=== PATIENT | female | born 1975 | race African-American/Black ===

== ENCOUNTER 2019-10-30 17:20 | Emergency (ER) | payer OTHER, SELFPAY ==
--- NOTE | ~2019-10-30 | CT_ITS ---
EXAMINATION: CT abdomen pelvis wo con DATE: 10/30/2019 18:36 INDICATION: Right flank pain TECHNIQUE: Computed tomography (CT) of the abdomen and pelvis was performed without intravenous contr ast. Automated exposure control and iterative reconstruction technique were employed. Exam dose: 435 .80 mGy-cm total exam DLP. COMPARISON: 03/14/2019 CT abdomen pelvis FINDINGS: There is mild discoid atelectasis or scarring in the base of the middle lobe. The lung base s are otherwise clear. Normal heart size. No pericardial or pleural effusion. The liver, gallbladder, bile ducts, spleen, pancreas, pancreatic duct, and adrenal glands and kidneys appear unremarkable. No urinary tract calculus or hydroureteronephrosis is detected. The urinary markell dder is unremarkable. Status post hysterectomy. There is mild aortic calcification but no aneurysm. No intraperitoneal or retroperitoneal or pelvic m ass lesion or adenopathy or ascites. Mild colonic diverticulosis; no CT evidence of diverticulitis. Normal appendix. Included skeletal structures are unremarkable. IMPRESSION: Mild left and right colonic diverticulosis; no CT evidence of diverticulitis Reviewed, dictated and finalized at [facility]. Reviewed, dictated and finalized at [facility]. IMPRESSION: Mild left and right colonic diverticulosis; no CT evidence of dive rticulitis
[2019-10-30 17:45] VITALS: BP 152/97; PULSE 96; RESP 16; TEMP 37.1; O2SAT 100
[2019-10-30 18:00] LABS: Basophils Absolute Auto 0.1 K/mm3 (0.0-0.1); Basophils Percent Auto 0.7 % (0.2-1.2); Eosinophils Absolute Auto 0.1 K/mm3 (0-0.3); Eosinophils Percent Auto 1.7 % (0-4.4); Hematocrit 41.4 % (37.0-47.0); Hemoglobin 14.1 g/dL (12.0-15.0); Immature Granulocyte Absolute 0.02 K/mm3 (0.00-0.031); Immature Granulocyte Percent A 0.3 % (0-0.5); Lymphocytes Absolute Auto 2.31 K/mm3 (0.9-3.2); Lymphocytes Percent Auto 32.5 % (18.3-44.2); Mean Corpuscular HGB Conc 34.1 g/dl (32-36); Mean Corpuscular Hemoglobin 31.3 pg (26-34); Mean Corpuscular Volume 91.8 fl (80-100); Mean Platelet Volume 9.3 fl (7.4-10.4); Monocytes Absolute Auto 0.6 K/mm3 (0.1-0.6); Monocytes Percent Auto 8.9 % (2.6-8.5); Neutrophils Percent Auto 55.9 % (45.5-73.1); Platelet Count Result 362 k/mm3 (150-375); Red Blood Count 4.51 M/mm3 (4.2-5.4); Red Cell Distribution Width 13.3 % (11.5-14.5); White Blood Count 7.1 K/mm3 (4.5-10.0)
[2019-10-30 18:03] LABS: Add Urine Microscopic? YES; Appearance Urine Clear (Clear); Bilirubin Urine Negative (Negative); Blood Urine 1+ (Negative); Color Urine Yellow (Yellow); Glucose Urine UA Negative (Negative); Ketones Urine Negative (Negative); Leukocyte Esterase Ur Negative LEU/UL (Negative); Mucus Urine Rare /lpf; Nitrate Urine Negative (Negative); Protein Urine Negative (Negative); RBC Urine 0-2 /hpf (0-2); Specific Grav Ur 1.019 (1.001-1.035); Squamous Epithelial Cell Urine Rare /hpf (Few); Urobilinogen Urine Negative mg/dL (<2.0); WBC Urine 0-3 /hpf
[2019-10-30] MEDS: SODIUM CHLORIDE 0.9% IV 1,000 ML 999 ML IV CONT (18:10)
[2019-10-30] MEDS: KETOROLAC 30 MG/ML VIAL (*BKC) IV PUSH (18:10)
[2019-10-30 18:12] LABS: Blood Urea Nitrogen 14 mg/dL (7-17); Calcium 9.2 mg/dL (8.4-10.2); Carbon Dioxide 28 mmol/L (22-30); Chloride 101 mmol/L (98-107); Estimated CRCL calculation 93 ml/min; Estimated Glomerular Filt Rate > 60; Glucose 107 mg/dL (65-105); Potassium 3.2 mmol/L (3.4-5.0); Sodium 137 mmol/L (137-145)
--- NOTE | 2019-10-30 19:02 | ED.BACK ---
HPI - Back Pain/Injury General Chief Complaint: Back Pain/Injury <PATSY Amezcua Last Filed: 10/30/19 19:20> Stated Complaint: R back/flank pain <PASTY Amezcua Last Filed: 10/30/19 19:20> Time Seen by Provider: 10/30/19 17:52 <PATSY Amezcua Last Filed: 10/30/19 19:20> Source: patient <PATSY Amezcua Last Filed: 10/30/19 19:20> Mode of arrival: ambulatory <PATSY Amezcua Last Filed: 10/30/19 19:20> Limitations: no limitations <PATSY Amezcua Last Filed: 10/30/19 19:20> History of Present Illness HPI Narrative: Patient is a 44-year-old female who presents with acute onset of right lower back pain that began today patient notes aching pain worse with activity and movement patient denies injury or trauma or similar occurrence in the past has not taken anything for her symptoms did attempt icy hot. Patient on arrival in no distress noting that the pain is worse with activity and movement is noted patient denies recent illness or sick contacts <PATSY Amezcua Last Filed: 10/30/19 19:20> Related Data Home Medications: Home Medications Medication Instructions Recorded Confirmed amlodipine 10/30/19 10/30/19 atorvastatin 10/30/19 ergocalciferol (vitamin D2) 10/30/19 [Vitamin D2] ferrous sulfate mg PO 10/30/19 hydrochlorothiazide 10/30/19 losartan 10/30/19 omeprazole 10/30/19 topiramate 10/30/19 <PATSY Amezcua Last Filed: 10/30/19 19:20> Allergies/Adverse Reactions: Allergies Allergy/AdvReac Type Severity Reaction Status Date / Time No Known Allergies Allergy Verified 10/30/19 18:01 <PATSY Amezcua Last Filed: 10/30/19 19:20> Review of Systems Review of Systems: All systems reviewed & are unremarkable except as noted in HPI and below <PATSY Amezcua Last Filed: 10/30/19 19:20> [facility] Surgical History Surgical History: Surgical History History of partial hysterectomy <Moo Gannon PA-C - Last Filed: 10/30/19 19:20> Social History Social History: Social History (Updated 10/30/19 @ 19:03 by Moo Gannon PA-C) Smoking status: Former smoker <Moo Gannon PA-C - Last Filed: 10/30/19 19:20> Exam Narrative: Exam Narrative: GENERAL: Well-appearing, well-nourished, and in no acute distress. HEAD: Normocephalic, atraumatic. EYES: PERRLA and EOMI. ENT: Nares clear, no rhinorrhea or epistaxis. Mucous membranes moist. CHEST: Clear to auscultation. No respiratory distress. No wheezes rales or rhonchi HEART: Regular rate and rhythm. No murmur heard. Normal peripheral pulses. ABDOMEN: Soft, nontender, nondistended EXTREMITIES: Normal range of motion. No edema. Right flank and lower lumbar tenderness to palpation SKIN: Warm, dry, no rash. NEURO: No focal deficits. Alert and oriented x3. Normal speech and gait PSYCH: Normal mood and affect. <Moo Gannon PA-C - Last Filed: 10/30/19 19:20> Course Course Emergency Course: Patient in the room in no distress aware of case findings treatment plan and diagnosis agreeing to follow-up as directed or to return if symptoms worsen or concerns <Moo Gannon PA-C - Last Filed: 10/30/19 19:20> Vital Signs Vital signs: Vital Signs Temperature 98.8 F 10/30/19 17:45 Pulse Rate 96 10/30/19 17:45 Respiratory Rate 16 10/30/19 17:45 Blood Pressure 152/97 H 10/30/19 17:45 Pulse Oximetry 100 10/30/19 17:45 Temperature 98.0 F 10/30/19 19:35 Pulse Rate 90 10/30/19 19:35 Respiratory Rate 15 10/30/19 19:35 Blood Pressure 147/91 H 10/30/19 19:35 Pulse Oximetry 99 10/30/19 19:35 <Moo Gannon PA-C - Last Filed: 10/30/19 19:20> Vital Signs Temperature 98.8 F 10/30/19 17:45 Pulse Rate 96 10/30/19 17:45 Respiratory Rate 16 10/30/19 17:45 Blood Pressure
[2019-10-30 19:35] VITALS: BP 147/91; PULSE 90; RESP 15; TEMP 36.7; O2SAT 99
== END 2019-10-30 19:35 | disposition home or self-care (01) ==
PROVIDERS: Emergency Provider Emergency Medicine; PCP Physician Assistant
DX: M54.5 Low back pain (principal); K57.90 Diverticulosis of intestine, part unspecified, without perforation or abscess without bleeding; Z87.891 Personal history of nicotine dependence
CPT/HCPCS: 36415; 74176; 80048; 81001; 85025; 96361; 96374; 96375; 99284; A9270; J1885; J3360; J7030

== ENCOUNTER 2019-11-17 00:42 | Emergency (ER) | payer OTHER, SELFPAY ==
[2019-11-17] VITALS (7 sets, daily range): BP systolic 124–162; BP diastolic 76–95; PULSE 70–90; RESP 18–19; TEMP 36.7–37.3; O2SAT 100
--- NOTE | ~2019-11-17 | CT_ITS ---
EXAMINATION: CT abdomen pelvis w con DATE: 11/17/2019 03:33 INDICATION: Abdominal pain. Nausea and vomiting. Constipation. TECHNIQUE: Computed tomography (CT) of the abdomen and pelvis was performed with 100 mL Omnipaque 350 intravenous contrast. Automated exposure control and iterative reconstruction technique were employe d. The dose-length product was 918.11 mGy-cm. COMPARISON: CT abdomen and pelvis 10/30/2019 FINDINGS: The visualized portions of the lung bases demonstrate mosaic attenuation, likely small airw ays disease. There is mild atelectasis bilaterally. No pleural effusion. The heart size is normal. No pericardial effusion. The liver, gallbladder, spleen, pancreas, adrenal glands, and kidneys are norm al. There are no dilated loops of bowel. The appendix is normal. There are no pathologically enlarged lymph nodes. There is no free intraperitoneal fluid. There is mild thoracolumbar spondylosis. There is mild chronic anterior wedging of T12 vertebral body. IMPRESSION: 1. No etiology for the patient's symptoms. Reviewed, dictated and finalized at location [facility].
--- NOTE | ~2019-11-17 | XR_ITS ---
EXAMINATION: XR chest 2V DATE: 11/17/2019 01:24 INDICATION: Chest pain. TECHNIQUE: Frontal and lateral views of the chest were obtained. COMPARISON: CT abdomen and pelvis 11/17/2019 FINDINGS: The chest demonstrates clear lungs without pneumonia, pleural effusion, or pneumothorax. Th e heart size is normal. IMPRESSION: 1. No acute cardiopulmonary disease. Reviewed, dictated and finalized at location [facility].
--- NOTE | ~2019-11-17 | XR_ITS ---
EXAMINATION: XR abdomen/kub 1V DATE: 11/17/2019 01:24 INDICATION: Constipation. TECHNIQUE: A supine view of the abdomen on 2 radiographs was obtained. COMPARISON: CT abdomen and pelvis 11/17/2019 FINDINGS: There are no dilated loops of bowel. There is a moderate volume of stool in the colon. IMPRESSION: 1. Normal bowel gas pattern. Reviewed, dictated and finalized at location [facility].
--- NOTE | 2019-11-17 00:48 | ECG_ITS ---
Measurements Intervals [place] Rate: 84 P: 27 DC: 128 QRS: 15 QRSD: 89 T: 39 QT: 374 QTc: 442 Interpretive Statements SINUS RHYTHM BORDERLINE ST ABNORMALITY- ANTEROLATERAL LEADS BASELINE ARTIFACT- II, III, AVF BORDERLINE ECG Electronically Signed On 11-17-2019 7:13:31 CDT by Shailesh Blanco D.O.
[2019-11-17 01:01] LABS: Basophils Percent Auto 0.4 % (0.2-1.2); Eosinophils Absolute Auto 0.2 K/mm3 (0-0.3); Hematocrit 39.9 % (37.0-47.0); Hemoglobin 13.9 g/dL (12.0-15.0); Immature Granulocyte Absolute 0.01 K/mm3 (0.00-0.031); Immature Granulocyte Percent A 0.1 % (0-0.5); Lymphocytes Absolute Auto 2.87 K/mm3 (0.9-3.2); Lymphocytes Percent Auto 36.7 % (18.3-44.2); Mean Corpuscular HGB Conc 34.8 g/dl (32-36); Mean Corpuscular Hemoglobin 31.9 pg (26-34); Mean Corpuscular Volume 91.5 fl (80-100); Mean Platelet Volume 9.3 fl (7.4-10.4); Monocytes Absolute Auto 0.8 K/mm3 (0.1-0.6); Monocytes Percent Auto 9.6 % (2.6-8.5); Neutrophils Percent Auto 51.2 % (45.5-73.1); Platelet Count Result 371 k/mm3 (150-375); Red Blood Count 4.36 M/mm3 (4.2-5.4); Red Cell Distribution Width 13.2 % (11.5-14.5); White Blood Count 7.8 K/mm3 (4.5-10.0)
[2019-11-17 01:20] LABS: Prothrombin Time 13.1 Seconds (11.1-14.7)
[2019-11-17 01:21] LABS: Partial Thromboplastin Time 23.9 SECONDS (22.3-36.8)
[2019-11-17 01:31] LABS: Troponin I < 0.012 ng/mL (0.000-0.034)
[2019-11-17 01:35] LABS: Blood Urea Nitrogen 14 mg/dL (7-17); Calcium 9.5 mg/dL (8.4-10.2); Carbon Dioxide 28 mmol/L (22-30); Chloride 101 mmol/L (98-107); Estimated CRCL calculation 103 ml/min; Estimated Glomerular Filt Rate > 60; Glucose 142 mg/dL (65-105); Potassium 2.8 mmol/L (3.4-5.0); Sodium 136 mmol/L (137-145)
--- NOTE | 2019-11-17 03:02 | ED.CHESTPAIN ---
HPI - Chest Pain General Chief Complaint: Chest Pain Stated Complaint: badly constipated; messing with my chest Time Seen by Provider: 11/17/19 02:55 History of Present Illness HPI narrative: Patient presents with chest pain which she says is from her severe constipation. She vomited here. Now her pain is only a 3-4 out of 10. She said she is tried everything for her bowels, but she has not tried MiraLAX. This problem is a longtime chronic problem. Her chest pain is gone since she did throw up. Takes medicine for hypertension hypercholesterolemia and reflux. She is a former smoker, does not drink alcohol, and intends to quit smoking marijuana. She has been unemployed since before [facility]. Related Data Home Medications Medication Instructions Recorded Confirmed amlodipine 10/30/19 10/30/19 atorvastatin 10/30/19 ergocalciferol (vitamin D2) 10/30/19 [Vitamin D2] ferrous sulfate mg PO 10/30/19 hydrochlorothiazide 10/30/19 losartan 10/30/19 omeprazole 10/30/19 topiramate 10/30/19 Allergies Allergy/AdvReac Type Severity Reaction Status Date / Time No Known Allergies Allergy Verified 10/30/19 18:01 Review of Systems Review of Systems: Narrative: CONSTITUTIONAL: Denies fever, chills, or sweats. EYES: Denies visual changes, redness, or discharge. ENT: Denies rhinorrhea, congestion, sore throat, or otalgia. CARDIOVASCULAR: Her chest pain is better, she does not have palpitations, or edema. RESPIRATORY: Denies cough or dyspnea. GASTROINTESTINAL: She has abdominal pain, nausea, vomiting, but not diarrhea. GENITOURINARY: Denies dysuria or hematuria. SKIN: Denies rash or itching. MUSCULOSKELETAL: Denies back pain, joint pain, or myalgia. NEUROLOGIC: Denies headache, numbness, or weakness. PSYCHIATRIC: Denies anxiety or depression. [facility] Surgical History Surgical History History of partial hysterectomy Social History Social History (Updated 11/17/19 @ 03:06 by Sandi Zavala MD) Smoking status: Former smoker Alcohol intake: never Substance use: current Substance use type: marijuana Exam Narrative: Exam Narrative: GENERAL: Well-appearing, well-nourished, and in no acute distress. Beautiful smile. HEAD: Normocephalic, atraumatic. EYES: PERRLA and EOMI. ENT: Nares clear, no rhinorrhea or epistaxis. Mucous membranes moist. NECK: Supple. CHEST: Clear to auscultation. No respiratory distress. HEART: Regular rate and rhythm. No murmur heard. Normal peripheral pulses. ABDOMEN: Soft, nontender, nondistended, normal active bowel sounds. EXTREMITIES: Normal range of motion. No edema. SKIN: Warm, dry, no rash. NEURO: No focal deficits. Alert and oriented x3. PSYCH: Normal mood and affect. [place] Course Reevaluation(s) Reevaluation #1: Patient is feeling better and thinks that she can take her second dose of potassium is an oral pill. I explained that her CAT scan came back fine. Date: 11/17/19 Time: 04:36 Vital Signs Vital signs: Vital Signs Temperature 99.1 F 11/17/19 00:50 Pulse Rate 90 11/17/19 00:50 Respiratory Rate 19 11/17/19 00:50 Blood Pressure 148/76 H 11/17/19 00:50 Pulse Oximetry 100 11/17/19 00:50 Temperature 99.1 F 11/17/19 00:50 Pulse Rate 70 11/17/19 05:07 Respiratory Rate 18 11/17/19 05:07 Blood Pressure 162/95 H 11/17/19 05:07 Pulse Oximetry 100 11/17/19 05:07 MDM - Chest Pain MDM Narrative Medical decision making narrative: I suspect the chest pain is her reflux, and I suspect the constipation is functional, but because she vomited here I will get a CAT scan to rule out any obstruction. I already discussed MiraLAX treatment with her, for long-term treatment of her constipation. Medical Records Data Attestation: I reviewed the patient's medical records. Lab Data Attestation: I reviewed the patient's lab results. Result diagrams: 11/17/19 00:55 11/17/19 00:55
[2019-11-17] MEDS: BELLADONNA ALK/PHENOB ELIX 10 ML, MAG HYDROX/ALUMINUM HYD/SIMETH 30 ML, LIDOCAINE HCL 2... PO (03:52)
[2019-11-17] MEDS: FAMOTIDINE 20 MG/2 ML VIAL IV PUSH (03:52)
[2019-11-17] MEDS: ONDANSETRON INJ 4 MG/2 ML VIAL IV PUSH (03:52)
[2019-11-17] MEDS: SODIUM CHLORIDE 0.9% IV 1,000 ML 999 ML IV CONT (03:52)
[2019-11-17] MEDS: KCL 20 MEQ/SW 100 ML 100 ML 50 MEQ IVPB (04:06)
[2019-11-17 04:16] LABS: Troponin I < 0.012 ng/mL (0.000-0.034)
[2019-11-17] MEDS: POTASSIUM CHLORIDE 20 MEQ PACKET (FOR LIQUID) PO (05:20)
--- NOTE | 2019-11-17 05:22 | PC.NURSE ---
KCL drip discontinued at this time per edp orders. pt given 20 meq of potassium PO at this time.
== END 2019-11-17 06:45 | disposition home or self-care (01) ==
PROVIDERS: Emergency Provider Emergency Medicine; PCP Physician Assistant
DX: R10.84 Generalized abdominal pain (principal); K59.00 Constipation, unspecified; E87.6 Hypokalemia; R11.2 Nausea with vomiting, unspecified; Z87.891 Personal history of nicotine dependence
CPT/HCPCS: 36415; 71046; 74018; 74177; 80048; 84484; 85025; 85610; 85730; 93005; 96365; 96375; 99284; A9270; J2405; J3480; J7030; Q9967

== ENCOUNTER 2019-11-18 15:43 | Emergency (ER) | payer OTHER, SELFPAY ==
--- NOTE | ~2019-11-18 | XR_ITS ---
EXAMINATION: XR chest 2V DATE: 11/18/2019 16:40 INDICATION: Mid anterior chest pain, hypertension TECHNIQUE: PA and lateral views of the chest are obtained. COMPARISON: 11/17/2019 FINDINGS: The lungs are free of acute opacities. There is no pleural effusion or pneumothorax. The ca rdiomediastinal silhouette is normal. The visualized bones and soft tissues are unremarkable. IMPRESSION: 1. No acute cardiopulmonary abnormality. Reviewed, dictated and finalized at location [facility].
--- NOTE | 2019-11-18 15:46 | ECG_ITS ---
Measurements Intervals [place] Rate: 68 P: 45 AR: 134 QRS: 41 QRSD: 92 T: 51 QT: 388 QTc: 413 Interpretive Statements SINUS RHYTHM NORMAL ECG Electronically Signed On 11-18-2019 16:52:03 CDT by Shailesh Blanco D.O.
[2019-11-18 15:50] VITALS: PULSE 78
--- NOTE | 2019-11-18 15:55 | ED.CHESTPAIN ---
HPI - Chest Pain General Chief Complaint: Chest Pain Stated Complaint: Chest Pain Time Seen by Provider: 11/18/19 15:47 Source: patient and family Mode of arrival: ambulatory Limitations: no limitations History of Present Illness HPI narrative: Patient is a 44-year-old with a history of hypertension who presents for evaluation of chest pain. Patient reportedly has had intermittent chest pain over the past 2 weeks, worse since last night, described as a sharp pressure in the center of her chest with radiation into the left chest. Patient denies any nausea, diaphoresis, shortness of breath, left jaw pain, left neck pain, or arm pain. No ripping or tearing sensation to the flanks. The patient's pain can occur while she is at rest, exertion does not seem to affect the pain. This morning, the pain began while she was eating breakfast and resolved after approximately 20 minutes. No current pain while in the emergency department. No pain with a deep breath or shortness of breath. No cough or fever. Patient follows with [facility], she has an appointment with her data collection technician on December 01. Patient states she stopped smoking tobacco in 2015, occasionally smokes marijuana, but no marijuana use over the past 4 days Related Data Home Medications Medication Instructions Recorded Confirmed amlodipine 5 mg PO DAILY 10/30/19 10/30/19 atorvastatin 80 mg PO DAILY 10/30/19 ergocalciferol (vitamin D2) 50,000 unit PO WEEKLY 10/30/19 [Vitamin D2] ferrous sulfate 325 mg PO DAILY 10/30/19 hydrochlorothiazide 25 mg PO DAILY 10/30/19 losartan 100 mg PO DAILY 10/30/19 omeprazole 20 mg PO DAILY 10/30/19 Allergies Allergy/AdvReac Type Severity Reaction Status Date / Time No Known Allergies Allergy Verified 10/30/19 18:01 Review of Systems Review of Systems: Narrative: CONSTITUTIONAL: Denies fever, chills, or sweats. EYES: Denies visual changes ENT: Denies rhinorrhea, congestion CARDIOVASCULAR: Denies current chest pain, palpitations or edema RESPIRATORY: Denies cough or dyspnea. GASTROINTESTINAL: Denies abdominal pain, nausea, vomiting, or diarrhea. GENITOURINARY: Denies dysuria or hematuria. SKIN: Denies rash or itching. MUSCULOSKELETAL: Denies back pain, joint pain, or myalgia. NEUROLOGIC: Denies headache, numbness, or weakness. [facility] Past Medical History Medical History Hypercholesterolemia Hypertension Surgical History Surgical History History of partial hysterectomy Social History Social History Smoking status: Former smoker Alcohol intake: never Substance use: current Substance use type: marijuana Gender identity (if verbalized by the patient): Female Exam Narrative: Exam Narrative: GENERAL: Awake, alert, conversant HEAD: Normocephalic, atraumatic. EYES: PERRLA and EOMI. ENT: Nares clear, no rhinorrhea or epistaxis. Mucous membranes moist. NECK: Supple. CHEST: No respiratory distress, breathing even and non labored, no chest wall tenderness HEART: Regular rate, sinus rhythm ABDOMEN:Non distended, non tender EXTREMITIES: Normal range of motion. No edema. No calf tenderness, erythema. SKIN: Warm, dry, no rash. NEURO:No focal deficits. Alert and oriented x3 Course Vital Signs Vital signs: Vital Signs Pulse Rate 78 11/18/19 15:50 Pulse Rate 72 11/18/19 16:16 Respiratory Rate 18 11/18/19 16:16 Blood Pressure 152/105 H 11/18/19 16:16 Pulse Oximetry 100 11/18/19 16:16 MDM - Chest Pain MDM Narrative Medical decision making narrative: Patient presented for chest pain that had resolved at the time of assessment. Patient is already passed a 3-hour window of symptom onset. Patient's EKG and labs are without significant high risk changes. Cardiac risk factors reviewed. Patient is felt low risk f
[2019-11-18 15:56] VITALS: BP 150/93; PULSE 84; RESP 18; O2SAT 100
[2019-11-18 16:11] LABS: Basophils Absolute Auto 0.1 K/mm3 (0.0-0.1); Basophils Percent Auto 0.8 % (0.2-1.2); Eosinophils Percent Auto 0.3 % (0-4.4); Hematocrit 41.1 % (37.0-47.0); Hemoglobin 14.4 g/dL (12.0-15.0); Immature Granulocyte Absolute 0.02 K/mm3 (0.00-0.031); Immature Granulocyte Percent A 0.3 % (0-0.5); Lymphocytes Absolute Auto 1.56 K/mm3 (0.9-3.2); Lymphocytes Percent Auto 23.4 % (18.3-44.2); Mean Corpuscular Hemoglobin 31.6 pg (26-34); Mean Corpuscular Volume 90.3 fl (80-100); Mean Platelet Volume 9.3 fl (7.4-10.4); Monocytes Absolute Auto 0.5 K/mm3 (0.1-0.6); Neutrophils Absolute Auto 4.5 K/mm3 (1.3-6.7); Neutrophils Percent Auto 67.2 % (45.5-73.1); Platelet Count Result 415 k/mm3 (150-375); Red Blood Count 4.55 M/mm3 (4.2-5.4); Red Cell Distribution Width 13.1 % (11.5-14.5); White Blood Count 6.7 K/mm3 (4.5-10.0)
[2019-11-18 16:16] VITALS: BP 152/105; PULSE 72; RESP 18; O2SAT 100
[2019-11-18 16:25] LABS: Blood Urea Nitrogen 11 mg/dL (7-17); Calcium 10.1 mg/dL (8.4-10.2); Carbon Dioxide 28 mmol/L (22-30); Chloride 102 mmol/L (98-107); Estimated CRCL calculation 102 ml/min; Estimated Glomerular Filt Rate > 60; Glucose 110 mg/dL (65-105); Potassium 3.6 mmol/L (3.4-5.0); Sodium 138 mmol/L (137-145)
[2019-11-18 16:35] LABS: Troponin I < 0.012 ng/mL (0.000-0.034)
[2019-11-18] MEDS: ASPIRIN 81 MG CHEWABLE TABLET 324 MG PO (16:48)
[2019-11-18] MEDS: ACETAMINOPHEN 500 MG TABLET 1000 MG PO (16:49)
[2019-11-18] MEDS: ONDANSETRON INJ 4 MG/2 ML VIAL IV PUSH (16:52)
[2019-11-18 17:12] LABS: INR 1.1; Prothrombin Time 13.5 Seconds (11.1-14.7)
[2019-11-18 17:15] LABS: D Dimer 0.32 ug/mL (<0.48)
[2019-11-18 17:43] VITALS: BP 146/86; PULSE 70; RESP 16; TEMP 36.8; O2SAT 100
== END 2019-11-18 17:45 | disposition home or self-care (01) ==
PROVIDERS: Emergency Provider Emergency Medicine; PCP Physician Assistant
DX: R07.89 Other chest pain (principal); E78.00 Pure hypercholesterolemia, unspecified; I10 Essential (primary) hypertension; Z87.891 Personal history of nicotine dependence
CPT/HCPCS: 36415; 71046; 80048; 81025; 84484; 85025; 85380; 85610; 85730; 93005; 96374; 99284; A9270; J2405

== ENCOUNTER 2020-01-03 16:28 | Emergency (ER) | payer OTHER, SELFPAY ==
[2020-01-03 16:38] VITALS: BP 150/94; PULSE 83; RESP 18; TEMP 36.6; O2SAT 100
[2020-01-03 16:52] LABS: Basophils Percent Auto 0.7 % (0.2-1.2); Eosinophils Percent Auto 0.7 % (0-4.4); Hematocrit 39.9 % (37.0-47.0); Immature Granulocyte Absolute 0.02 K/mm3 (0.00-0.031); Immature Granulocyte Percent A 0.3 % (0-0.5); Lymphocytes Absolute Auto 1.73 K/mm3 (0.9-3.2); Lymphocytes Percent Auto 28.3 % (18.3-44.2); Mean Corpuscular HGB Conc 35.1 g/dl (32-36); Mean Corpuscular Hemoglobin 31.5 pg (26-34); Mean Corpuscular Volume 89.7 fl (80-100); Mean Platelet Volume 9.1 fl (7.4-10.4); Monocytes Absolute Auto 0.7 K/mm3 (0.1-0.6); Monocytes Percent Auto 11.1 % (2.6-8.5); Neutrophils Absolute Auto 3.6 K/mm3 (1.3-6.7); Neutrophils Percent Auto 58.9 % (45.5-73.1); Platelet Count Result 326 k/mm3 (150-375); Red Blood Count 4.45 M/mm3 (4.2-5.4); Red Cell Distribution Width 12.8 % (11.5-14.5); White Blood Count 6.1 K/mm3 (4.5-10.0)
[2020-01-03 17:07] LABS: Alanine Aminotransferase 48 U/L (4-35); Albumin Level 4.5 g/dL (3.5-5.1); Alkaline Phosphatase 89 U/L (38-126); Aspartate Amino Transferase 40 U/L (14-36); Bilirubin,Total 0.8 mg/dL (0.2-1.3); Blood Urea Nitrogen 9 mg/dL (7-17); Calcium 10.3 mg/dL (8.4-10.2); Carbon Dioxide 29 mmol/L (22-30); Chloride 99 mmol/L (98-107); Estimated CRCL calculation 87 ml/min; Estimated Glomerular Filt Rate > 60; Glucose 109 mg/dL (65-105); Lipase 93 U/L (23-300); Potassium 3.5 mmol/L (3.4-5.0); Sodium 135 mmol/L (137-145)
[2020-01-03 17:22] LABS: Add Urine Microscopic? NO; Appearance Urine Clear (Clear); Bilirubin Urine Negative (Negative); Blood Urine Negative (Negative); Color Urine Yellow (Yellow); Glucose Urine UA Negative (Negative); Ketones Urine Negative (Negative); Leukocyte Esterase Ur Negative LEU/UL (Negative); Nitrate Urine Negative (Negative); Protein Urine Negative (Negative); Specific Grav Ur 1.016 (1.001-1.035); Urobilinogen Urine Negative mg/dL (<2.0)
--- NOTE | 2020-01-03 18:19 | ECG_ITS ---
Measurements Intervals [place] Rate: 60 P: 35 SD: 157 QRS: 13 QRSD: 90 T: 45 QT: 396 QTc: 397 Interpretive Statements SINUS RHYTHM NORMAL ECG Electronically Signed On 01-03-2020 18:57:33 CDT by Shailesh Blanco D.O.
--- NOTE | 2020-01-03 18:19 | ED.ABDPAIN ---
HPI - Abdominal Pain General Chief Complaint: Abdominal Pain Stated Complaint: Feel Like I am Dying , Digestive Issues Time Seen by Provider: 01/03/20 17:52 Source: patient Mode of arrival: ambulatory Limitations: no limitations History of Present Illness HPI narrative: This patient is a 44 year old female who presents for evaluation of intermittent lower abdominal pain. She states she has this pain it seems every thursday. She states she has issues with constipation and she has been taking metamucil. She is have more frequent bowel movements. She had 3 normal bowel movements today. She denies nausea , vomiting, or fever. She is currently being evaluated by a tax manager cpa Dr. Beck for issues with GERD. She had an EGD performed 12/22 and she is following up in clinic on 01/10. She states she has intermittent epigastric pain but this has improved. She also reports she has been assessed in ED and a/c tech for atypical chest pain. She has been told she has no heart disease. She also denies vaginal discharge or urinary symptoms. MD elicited complaint: abdominal pain Related Data Home Medications Medication Instructions Recorded Confirmed amlodipine 5 mg PO DAILY 10/30/19 10/30/19 atorvastatin 80 mg PO DAILY 10/30/19 ergocalciferol (vitamin D2) 50,000 unit PO WEEKLY 10/30/19 [Vitamin D2] ferrous sulfate 325 mg PO DAILY 10/30/19 hydrochlorothiazide 25 mg PO DAILY 10/30/19 losartan 100 mg PO DAILY 10/30/19 omeprazole 20 mg PO DAILY 10/30/19 spironolactone 01/03/20 sumatriptan succinate mg PO 01/03/20 Allergies Allergy/AdvReac Type Severity Reaction Status Date / Time amitriptyline AdvReac Loss of Verified 01/03/20 18:16 Consciousness Review of Systems Review of Systems: All systems reviewed & are unremarkable except as noted in HPI and below Constitutional: Constitutional: Denies chills and Denies fever(s) Cardiovascular: Cardiovascular: Denies rapid heart rate and Denies radiating jaw, neck or arm pain Gastrointestinal: Gastrointestinal: Reports abdominal pain, Reports constipation, Denies nausea and Denies vomiting PMFSH Past Medical History Medical History Hypercholesterolemia Hypertension Surgical History Surgical History History of partial hysterectomy Social History Social History Smoking status: Former smoker Alcohol intake: never Substance use: current Substance use type: marijuana Gender identity (if verbalized by the patient): Female Exam Narrative: Exam Narrative: GENERAL: Well-appearing, well-nourished, and in no acute distress. HEAD: Normocephalic, atraumatic EYES: PERRLA and EOMI, conjunctiva clear without discharge THROAT:Mucous membranes moist, NECK: Supple, without lymphadenopathy or mass RESPIRATORY: No respiratory distress, Airway patent, Respirations non-labored, Clear to auscultation without rales, rhonchi or wheeze HEART: Regular rate and rhythm. No murmur heard. Normal peripheral pulses. ABDOMEN: Soft, nontender, nondistended, normal active bowel sounds. No masses. No rebound or guarding, No organomegaly. EXTREMITIES: No edema, normal strength with full range of motion. SKIN: Warm, dry, normal color without rash NEURO: Alert and oriented x3. CN 2-12 grossly intact. No focal deficits. PSYCH: Normal mood and affect. Course Reevaluation(s) Reevaluation #1: Patient reports her has minimal abdominal pain. She is normal abdominal exam and labs are unremarkable. She will follow up with tax manager cpa. Date: 01/03/20 Time: 19:11 Vital Signs Vital signs: Vital Signs Temperature 97.8 F 01/03/20 16:38 Pulse Rate 83 01/03/20 16:38 Respiratory Rate 18 01/03/20 16:38 Blood Pressure 150/94 H 01/03/20 16:38 Pulse Oximetry 100 01/03/20 16:38
[2020-01-03 18:23] VITALS: BP 141/91; PULSE 65; PULSE 67; RESP 13; RESP 16; O2SAT 100
[2020-01-03 19:00] VITALS: BP 156/86; PULSE 68; RESP 14; O2SAT 100
[2020-01-03 19:16] VITALS: BP 142/88; PULSE 74; RESP 18; TEMP 36.8; O2SAT 100
== END 2020-01-03 19:21 | disposition home or self-care (01) ==
PROVIDERS: Emergency Medicine; Emergency Provider General Practice; PCP Physician Assistant
DX: R10.2 Pelvic and perineal pain (principal); I10 Essential (primary) hypertension; E78.5 Hyperlipidemia, unspecified
CPT/HCPCS: 36415; 80053; 81003; 81025; 83690; 85025; 93005; 99283

== ENCOUNTER 2020-02-16 15:10 | Emergency (ER) | payer OTHER, SELFPAY ==
[2020-02-16 15:20] VITALS: BP 146/100; PULSE 87; RESP 16; TEMP 36.9; O2SAT 100
[2020-02-16 16:20] LABS: Basophils Percent Auto 0.5 % (0.2-1.2); Eosinophils Percent Auto 0.4 % (0-4.4); Hematocrit 44.4 % (37.0-47.0); Hemoglobin 15.4 g/dL (12.0-15.0); Immature Granulocyte Absolute 0.02 K/mm3 (0.00-0.031); Immature Granulocyte Percent A 0.3 % (0-0.5); Lymphocytes Absolute Auto 2.05 K/mm3 (0.9-3.2); Lymphocytes Percent Auto 25.9 % (18.3-44.2); Mean Corpuscular HGB Conc 34.7 g/dl (32-36); Mean Corpuscular Hemoglobin 31.9 pg (26-34); Mean Corpuscular Volume 91.9 fl (80-100); Mean Platelet Volume 9.3 fl (7.4-10.4); Monocytes Absolute Auto 0.7 K/mm3 (0.1-0.6); Monocytes Percent Auto 9.2 % (2.6-8.5); Neutrophils Percent Auto 63.7 % (45.5-73.1); Platelet Count Result 393 k/mm3 (150-375); Red Blood Count 4.83 M/mm3 (4.2-5.4); Red Cell Distribution Width 13.2 % (11.5-14.5); White Blood Count 7.9 K/mm3 (4.5-10.0)
[2020-02-16 16:23] LABS: Add Urine Microscopic? YES; Appearance Urine Clear (Clear); Bilirubin Urine Negative (Negative); Blood Urine 1+ (Negative); Color Urine Straw (Yellow); Glucose Urine UA Negative (Negative); Ketones Urine Negative (Negative); Leukocyte Esterase Ur Negative LEU/UL (Negative); Nitrate Urine Negative (Negative); Protein Urine Negative (Negative); RBC Urine 0-2 /hpf (0-2); Specific Grav Ur 1.009 (1.001-1.035); Squamous Epithelial Cell Urine Rare /hpf (Few); Urobilinogen Urine Negative mg/dL (<2.0)
[2020-02-16] MEDS: SODIUM CHLORIDE 0.9% IV 1,000 ML 999 ML IV CONT (16:23)
[2020-02-16] MEDS: ONDANSETRON INJ 4 MG/2 ML VIAL IV PUSH (16:24)
[2020-02-16] MEDS: FAMOTIDINE 20 MG/2 ML VIAL IV PUSH (16:25)
[2020-02-16] MEDS: MAG HYDROX/AL HYDROX/SIMETH 30 ML UDC PO (16:26)
[2020-02-16] MEDS: LIDOCAINE HCL 2% VISC SOLN 15 ML UDC 20 ML PO (16:26)
[2020-02-16 16:31] LABS: Alanine Aminotransferase 45 U/L (4-35); Alkaline Phosphatase 114 U/L (38-126); Anion Gap 11 mmol/L (8-16); Aspartate Amino Transferase 44 U/L (14-36); Bilirubin,Total 1.2 mg/dL (0.2-1.3); Blood Urea Nitrogen 12 mg/dL (7-17); Calcium 10.2 mg/dL (8.4-10.2); Carbon Dioxide 25 mmol/L (22-30); Chloride 98 mmol/L (98-107); Estimated CRCL calculation 79 ml/min; Estimated Glomerular Filt Rate > 60; Glucose 108 mg/dL (65-105); Lipase 73 U/L (23-300); Potassium 3.9 mmol/L (3.4-5.0); Sodium 134 mmol/L (137-145)
--- NOTE | 2020-02-16 16:33 | ED.ABDPAIN ---
HPI - Abdominal Pain General Chief Complaint: Abdominal Pain <PATSY Amezcua Last Filed: 02/16/20 17:33> Stated Complaint: abd pain <PATSY Amezcua Last Filed: 02/16/20 17:33> Time Seen by Provider: 02/16/20 16:06 <PATSY Amezcua Last Filed: 02/16/20 17:33> Source: patient <PATSY Amezcua Last Filed: 02/16/20 17:33> Mode of arrival: ambulatory <PATSY Amezcua Last Filed: 02/16/20 17:33> Limitations: no limitations <PATSY Amezcua Last Filed: 02/16/20 17:33> History of Present Illness HPI narrative: Patient is a 45-year-old female who presents to emergency department for evaluation of epigastric abdominal pain rating up into the chest with history of reflux for which she takes omeprazole and [place] has planned follow-up with gastroenterology for this for the last 2 days she has had this discomfort when she has helped minimally by the medications and made worse with eating. Patient presents per private vehicle in no distress denies any fever chills vomiting diarrhea melena or rectal bleeding <PATSY Amezcua Last Filed: 02/16/20 17:33> Related Data Home Medications: Home Medications Medication Instructions Recorded Confirmed amlodipine 5 mg PO DAILY 10/30/19 10/30/19 atorvastatin 80 mg PO DAILY 10/30/19 ergocalciferol (vitamin D2) 50,000 unit PO WEEKLY 10/30/19 [Vitamin D2] ferrous sulfate 325 mg PO DAILY 10/30/19 hydrochlorothiazide 25 mg PO DAILY 10/30/19 losartan 100 mg PO DAILY 10/30/19 omeprazole 20 mg PO DAILY 10/30/19 spironolactone 01/03/20 sumatriptan succinate mg PO 01/03/20 <PATSY Amezcua Last Filed: 02/16/20 17:33> Allergies/Adverse Reactions: Allergies Allergy/AdvReac Type Severity Reaction Status Date / Time amitriptyline AdvReac Loss of Verified 02/16/20 15:59 Consciousness <PATSY Amezcua Last Filed: 08/13/20 17:33> Review of Systems Review of Systems: All systems reviewed & are unremarkable except as noted in HPI and below <Moo Gannon PA-C - Last Filed: 02/16/20 17:33> PMFSH Past Medical History Medical History: Medical History Hypercholesterolemia Hypertension <Moo Gannon PA-C - Last Filed: 02/16/20 17:33> Surgical History Surgical History: Surgical History History of partial hysterectomy <Moo Gannon PA-C - Last Filed: 02/16/20 17:33> Social History Social History: Social History Smoking status: Former smoker Alcohol intake: never Substance use: current Substance use type: marijuana Gender identity (if verbalized by the patient): Female <Moo Gannon PA-C - Last Filed: 02/16/20 17:33> Exam Narrative: Exam Narrative: GENERAL: Well-appearing, well-nourished, and in no acute distress. HEAD: Normocephalic, atraumatic. EYES: PERRLA and EOMI. ENT: Nares clear, no rhinorrhea or epistaxis. Mucous membranes moist. CHEST: Clear to auscultation. No respiratory distress. No wheezes rales or rhonchi HEART: Regular rate and rhythm. No murmur heard. Normal peripheral pulses. ABDOMEN: Soft, nontender, nondistended EXTREMITIES: Normal range of motion. No edema. SKIN: Warm, dry, no rash. NEURO: No focal deficits. Alert and oriented x3. PSYCH: Normal mood and affect. <Moo Gannon PA-C - Last Filed: 02/16/20 17:33> Course Course Emergency Course: Patient in the room in no distress improvement with medications in the room in no distress afebrile nontoxic-appearing <Moo Gannon PA-C - Last Filed: 02/16/20 17:33> Vital Signs Vital signs: Vital Signs Temperature 98.5 F 02/16/20 15:20 Pulse Rate 87 02/16/20 15:20 Respiratory Rate 16 02/16/20 15:20 Blood Pressure 146/100 H
== END 2020-02-16 18:10 | disposition home or self-care (01) ==
PROVIDERS: Emergency Medicine Emergency Medical Services; Emergency Provider General Practice; PCP Physician Assistant
DX: R10.13 Epigastric pain (principal); E78.5 Hyperlipidemia, unspecified; I10 Essential (primary) hypertension
CPT/HCPCS: 36415; 80053; 81001; 83690; 85025; 96365; 96375; 99284; A9270; J0131; J2405; J7030

== ENCOUNTER 2020-02-18 13:13 | Emergency (ER) | payer OTHER, SELFPAY ==
--- NOTE | ~2020-02-18 | XR_ITS ---
EXAMINATION: XR chest 2V DATE: 02/18/2020 13:48 INDICATION: Midline chest pain. TECHNIQUE: Frontal and lateral views of the chest were obtained. COMPARISON: Chest 2 views 11/18/2019, CT abdomen and pelvis 11/17/2019 FINDINGS: The chest demonstrates clear lungs without pneumonia, pleural effusion, or pneumothorax. Th e heart size is normal. IMPRESSION: 1. No acute cardiopulmonary disease. Reviewed, dictated and finalized at location A.
[2020-02-18 13:26] VITALS: BP 120/92; PULSE 78; RESP 18; TEMP 36.4; O2SAT 99
--- NOTE | 2020-02-18 13:32 | ECG_ITS ---
Measurements Intervals [place] Rate: 80 P: 43 RI: 129 QRS: 9 QRSD: 86 T: 61 QT: 374 QTc: 432 Interpretive Statements SINUS RHYTHM WITH SINUS ARRHYTHMIA BASELINE WANDER- I, II, V1-V3 NORMAL ECG Electronically Signed On 02-18-2020 18:11:34 CDT by Shailesh Blanco D.O.
[2020-02-18 13:33] VITALS: PULSE 86; O2SAT 100
[2020-02-18 13:57] LABS: Basophils Percent Auto 0.4 % (0.2-1.2); Eosinophils Percent Auto 0.1 % (0-4.4); Hematocrit 44.5 % (37.0-47.0); Hemoglobin 15.7 g/dL (12.0-15.0); Immature Granulocyte Absolute 0.01 K/mm3 (0.00-0.031); Immature Granulocyte Percent A 0.1 % (0-0.5); Lymphocytes Absolute Auto 1.78 K/mm3 (0.9-3.2); Lymphocytes Percent Auto 26.4 % (18.3-44.2); Mean Corpuscular HGB Conc 35.3 g/dl (32-36); Mean Corpuscular Volume 90.8 fl (80-100); Mean Platelet Volume 9.4 fl (7.4-10.4); Monocytes Absolute Auto 0.6 K/mm3 (0.1-0.6); Monocytes Percent Auto 9.5 % (2.6-8.5); Neutrophils Absolute Auto 4.3 K/mm3 (1.3-6.7); Neutrophils Percent Auto 63.5 % (45.5-73.1); Platelet Count Result 384 k/mm3 (150-375); Red Cell Distribution Width 12.9 % (11.5-14.5); White Blood Count 6.7 K/mm3 (4.5-10.0)
[2020-02-18 14:08] LABS: INR 1.1; Prothrombin Time 13.6 Seconds (11.1-14.7)
[2020-02-18 14:09] LABS: Partial Thromboplastin Time 22.5 SECONDS (22.3-36.8)
[2020-02-18 14:10] LABS: Anion Gap 10 mmol/L (8-16); Blood Urea Nitrogen 19 mg/dL (7-17); Calcium 10.1 mg/dL (8.4-10.2); Carbon Dioxide 24 mmol/L (22-30); Chloride 99 mmol/L (98-107); Estimated CRCL calculation 70 ml/min; Estimated Glomerular Filt Rate > 60; Glucose 102 mg/dL (65-105); Potassium 3.8 mmol/L (3.4-5.0); Sodium 133 mmol/L (137-145)
[2020-02-18 14:22] LABS: Troponin I < 0.012 ng/mL (0.000-0.034)
--- NOTE | 2020-02-18 15:13 | ED.CHESTPAIN ---
HPI - Chest Pain General Chief Complaint: Chest Pain Stated Complaint: CP Time Seen by Provider: 02/18/20 14:53 Source: patient Mode of arrival: ambulatory Limitations: no limitations History of Present Illness HPI narrative: This patient is a 45 year old female with history of hypertension, GERD and chronic abdominal pain and chest pain who presents for evaluation of chest pain. Patient reports intermittent midsternal chest pain that occurs 3-4 times a day . This pain will last for a minute and resolves. She denies having pain currently. She states this pain has been occurring for several months. She has been to the ER several times for this pain. She has also had 2 stress test with cardiology with in the past year. Her GI is Dr. Beck and she has an appointment last this month. She states she came because it is occurring more frequently. She denies associated sob, cough, or fever. She also reports lower back pain but denies urinary symptoms. MD complaint: chest pain Related Data Home Medications Medication Instructions Recorded Confirmed amlodipine 5 mg PO DAILY 10/30/19 10/30/19 atorvastatin 80 mg PO DAILY 10/30/19 ergocalciferol (vitamin D2) 50,000 unit PO WEEKLY 10/30/19 [Vitamin D2] ferrous sulfate 325 mg PO DAILY 10/30/19 hydrochlorothiazide 25 mg PO DAILY 10/30/19 losartan 100 mg PO DAILY 10/30/19 omeprazole 20 mg PO DAILY 10/30/19 spironolactone 01/03/20 sumatriptan succinate mg PO 01/03/20 dicyclomine 10 mg PO BID 02/18/20 pantoprazole PO 02/18/20 sucralfate 02/18/20 Allergies Allergy/AdvReac Type Severity Reaction Status Date / Time amitriptyline AdvReac Loss of Verified 02/18/20 13:38 Consciousness Review of Systems Review of Systems: All systems reviewed & are unremarkable except as noted in HPI and below Constitutional: Constitutional: Denies chills and Denies fever(s) Eyes: Comments: eye redness Cardiovascular: Cardiovascular: Reports chest pain, Denies rapid heart rate and Denies radiating jaw, neck or arm pain Respiratory: Respiratory: Denies cough, Denies dyspnea and Denies wheezing Gastrointestinal: Gastrointestinal: Reports abdominal pain (intermittent), Reports bloating, Denies diarrhea, Reports nausea and Denies vomiting Genitourinary: Genitourinary: Denies nocturia, Denies dysuria and Denies vaginal discharge Musculoskeletal: Musculoskeletal: Reports back pain PMFSH Social History Social History Smoking status: Former smoker Alcohol intake: never Substance use: current Substance use type: marijuana Gender identity (if verbalized by the patient): Female Exam Narrative: Exam Narrative: GENERAL: Well-appearing, well-nourished, and in no acute distress. HEAD: Normocephalic, atraumatic EYES: PERRLA and EOMI, conjunctiva clear without discharge THROAT:Mucous membranes moist, Oropharynx normal without erythema, exudate, peritonsillar swelling or fluctuance NECK: Supple, without lymphadenopathy or mass RESPIRATORY: No respiratory distress, Airway patent, Respirations non-labored, Clear to auscultation without rales, rhonchi or wheeze HEART: Regular rate and rhythm. No murmur heard. Normal peripheral pulses. ABDOMEN: Soft, nontender, nondistended, normal active bowel sounds. No masses. No rebound or guarding, No organomegaly. EXTREMITIES: No edema, normal strength with full range of motion. SKIN: Warm, dry, normal color without rash NEURO: Alert and oriented x3. CN 2-12 grossly intact. No focal deficits. PSYCH: Normal mood and affect. Course Reevaluation(s) Reevaluation #1: This patient is not having any chest. This pain is atypical. Date: 02/18/20 Time: 16:20 Vital Signs Vital signs: Vital Signs Temperature 97.6 F 02/18/20 13:26 Pulse Rate 78 02/18/20 13:26 Respiratory Rate 18 02/18/20 13:26 Blood Pressure 120/92 H 02/18/20 13:26 Pulse Oximetry 99 0
[2020-02-18 15:25] VITALS: BP 131/87; PULSE 77; PULSE 81; RESP 15; TEMP 36.7; O2SAT 100; O2SAT 99
[2020-02-18] MEDS: ASPIRIN 81 MG CHEWABLE TABLET 324 MG PO (15:28)
[2020-02-18 15:53] LABS: Add Urine Microscopic? YES; Appearance Urine Clear (Clear); Bilirubin Urine Negative (Negative); Blood Urine Negative (Negative); Color Urine Yellow (Yellow); Glucose Urine UA Negative (Negative); Ketones Urine Trace mg/dL (Negative); Leukocyte Esterase Ur Negative LEU/UL (Negative); Mucus Urine Rare /lpf; Nitrate Urine Negative (Negative); Protein Urine Negative (Negative); Specific Grav Ur 1.024 (1.001-1.035); Squamous Epithelial Cell Urine Occasional /hpf (Few); Urobilinogen Urine Negative mg/dL (<2.0); WBC Urine 0-3 /hpf
[2020-02-18 16:29] VITALS: BP 125/84; PULSE 78; RESP 18; O2SAT 99
== END 2020-02-18 16:30 | disposition home or self-care (01) ==
PROVIDERS: Emergency Medicine; Emergency Provider General Practice; PCP Physician Assistant
DX: R07.89 Other chest pain (principal); I10 Essential (primary) hypertension; K21.9 Gastro-esophageal reflux disease without esophagitis; Z87.891 Personal history of nicotine dependence
CPT/HCPCS: 36415; 71046; 80048; 81001; 81025; 84484; 85025; 85610; 85730; 93005; 99284; A9270

== ENCOUNTER 2021-06-27 08:51 | Outpatient (CLI) | payer OTHER, SELFPAY ==
--- NOTE | ~2021-06-27 | XR_ITS ---
BARIUM ENEMA-AIR CONTRAST INDICATION: Constipation TECHNIQUE: Examination of the colon utilizing air-contrast barium enema technique. COMPARISON: None FINDINGS: The entire colon was filled, distending normally. No extrinsic mass effect is noted. The haustral pattern appears normal. There is no evidence of polyp, stricture, extravasation, obstructio n or persistent mucosal abnormality. There are a few scattered diverticula. IMPRESSION: 1: Colonic diverticulosis. Otherwise, unremarkable colon. Reviewed, dictated and finalized at location A. ATER
== END 2021-06-27 08:52 | disposition home or self-care (01) ==
LOC: ANHIMG 08:52
PROVIDERS: PCP Physician Assistant; Visit Provider Internal Medicine Gastroenterology
DX: K59.00 Constipation, unspecified (principal); K57.30 Diverticulosis of large intestine without perforation or abscess without bleeding
CPT/HCPCS: 74280

== ENCOUNTER 2021-07-03 08:42 | Outpatient (CLI) | payer OTHER, SELFPAY ==
--- NOTE | ~2021-07-03 | XR_ITS ---
EXAMINATION: XR UGI wo kub EXAM DATE: 07/03/2021 09:32 INDICATION: Bloating, constipation. Epigastric pain. TECHNIQUE: Standard single and double contrast barium upper GI examination was performed by radiolog ist Paulino Joseph M.D. Pulsed dose reduction fluoroscopy was used with fluoroscopic time of 0.5 minut es. The DAP for this procedure was 2.3 Gycm2. A total of 96 images obtained for the exam. FINDINGS: There is no esophageal stricture, diverticulum or mass identified. Gastroesophageal juncti on is normal in appearance. Reflux was not demonstrated during this examination. The stomach has a normal appearance without evidence of mass lesion, ulceration or filling defect. T here is normal rugal fold pattern. The duodenum and duodenal sweep are normal in appearance. IMPRESSION: Normal exam. Reviewed, dictated and finalized at location A. [employer] IMPRESSION: Normal exam.
== END 2021-07-03 08:43 | disposition home or self-care (01) ==
LOC: ANHIMG 08:46
PROVIDERS: PCP Physician Assistant; Visit Provider Internal Medicine Gastroenterology
DX: K30 Functional dyspepsia (principal)
CPT/HCPCS: 74240

== ENCOUNTER 2022-04-24 14:02 | Emergency (ER) | payer OTHER, SELFPAY ==
--- NOTE | ~2022-04-24 | XR_ITS ---
EXAMINATION: XR lumbar spine 2-3V DATE: 04/24/2022 14:44 INDICATION: Low back pain TECHNIQUE: Anteroposterior and lateral views of the lumbar spine, and cone-down lateral view of the l umbosacral junction were obtained. COMPARISON: None. FINDINGS: There is straightening of the lumbar spine. Bone alignment is normal. There is no fracture. There is mild loss of intervertebral disc space height at L4-5. Small degenerative osteophytes proje ct from the anterior endplates of multiple vertebral bodies. The lumbar vertebral body heights are ma intained. There is mild anterior wedging of the lower thoracic spine. Calcified atherosclerosis is no marlin. IMPRESSION: 1. Mild lumbar spondylosis without acute findings. Reviewed, dictated and finalized at location B.
[2022-04-24 14:07] VITALS: BP 150/93; PULSE 105; RESP 14; TEMP 37.4; O2SAT 97
--- NOTE | 2022-04-24 14:28 | ED.GENADULT ---
HPI - General Adult General Chief complaint: Fever Stated complaint: back pain, QURESHI, fevers Time Seen by Provider: 04/24/22 14:19 History of Present Illness HPI narrative: 47-year-old female history of chronic abdominal pain GERD chronic low back pain and constipation presents to the emergency room for evaluation of left-sided lower back pain, sweats, and chills. Patient states that she was experiencing chills after getting out of the shower and having to walk down the hallway to her bedroom. She states the chills stopped after she told herself off. Patient states that she takes MiraLAX on a daily basis for constipation. Has been prescribed other medications but it causes her severe diarrhea and she does not like that feeling. Patient also complaining of sinus congestion, postnasal drip, cough for 2 weeks. Denies fevers. Denies shortness of breath difficulty breathing. Denies dysuria. Denies nausea or vomiting. Related Data Home Medications Medication Instructions Recorded Confirmed atorvastatin 80 mg tablet 80 mg PO DAILY 10/30/19 ergocalciferol (vitamin D2) 1,250 50,000 unit PO WEEKLY 10/30/19 mcg (50,000 unit) capsule (Vitamin D2) ferrous sulfate 325 mg (65 mg 325 mg PO DAILY 10/30/19 iron) tablet,delayed release hydrochlorothiazide 25 mg tablet 25 mg PO DAILY 10/30/19 losartan 100 mg tablet 100 mg PO DAILY 10/30/19 amlodipine 10 mg tablet 10 mg PO DAILY 01/07/22 dexlansoprazole 60 mg 60 mg PO DAILY 01/07/22 capsule,biphase delayed release (Dexilant) famotidine 40 mg tablet 40 mg PO DAILY 01/07/22 fluticasone propionate 50 1 spray intranasal DAILY 01/07/22 mcg/actuation nasal spray,suspension hyoscyamine sulfate 0.125 mg 0.125 mg sublingual TID 01/07/22 sublingual tablet polyethylene glycol 3350 17 gram 17 g PO BID 01/07/22 oral powder packet spironolactone 25 mg tablet 25 mg PO DAILY 01/07/22 Allergies Allergy/AdvReac Type Severity Reaction Status Date / Time amitriptyline AdvReac Loss of Verified 01/07/22 15:31 Consciousness Review of Systems Review of Systems: CONSTITUTIONAL: Reports chills, or sweats. EYES: Denies visual changes, redness, or discharge. ENT: Reports rhinorrhea, congestion, sore throat, or otalgia. CARDIOVASCULAR: Denies chest pain, palpitations, or edema. RESPIRATORY: Denies cough or dyspnea. GASTROINTESTINAL: Denies abdominal pain, nausea, vomiting, or diarrhea. GENITOURINARY: Denies dysuria or hematuria. SKIN: Denies rash or itching. MUSCULOSKELETAL: Reports lower back pain NEUROLOGIC: Denies headache, numbness, dizziness, or weakness. PSYCHIATRIC: Denies anxiety or depression. [facility] Past Medical History Medical History (Updated 04/24/22 @ 15:40 by Sancho Zavaleta APRN) Hypercholesterolemia Hypertension Surgical History Surgical History History of partial hysterectomy Social History Social History Smoking status: Former smoker Alcohol intake: never Substance use: current Substance use type: marijuana Gender identity (if verbalized by the patient): Female Exam Narrative: GENERAL: Well-appearing, well-nourished, no physical limitations, and in no acute distress. HEAD: Normocephalic, atraumatic. EYES: Conjunctivae normal, PERRLA and EOMI. CHEST: Clear to auscultation. No respiratory distress. No wheezes rales or rhonchi. HEART: Regular rate and rhythm. No murmur heard. Normal peripheral pulses. ABDOMEN: Soft, nontender, nondistended, normal active bowel sounds. : Normal external male/female exam. BACK: No CVA tenderness; No midline cervical/thoracic/lumbar tenderness, step-offs, bony abnormality; FROM. Tenderness to bilateral latissimus dorsi muscles and thoracolumbar fascia. EXTREMITIES: Normal range of motion. No edema. No clubbing or cyanosis SKIN: Warm, dry, no rash. No noted wounds NEURO: No focal defi
[2022-04-24 14:52] LABS: Add Urine Microscopic? YES; Appearance Urine Clear (Clear); Bilirubin Urine Negative (Negative); Blood Urine 2+ (Negative); Color Urine Yellow (Yellow); Glucose Urine UA Negative (Negative); Ketones Urine Negative (Negative); Leukocyte Esterase Ur Negative LEU/UL (Negative); Mucus Urine Rare /lpf; Nitrate Urine Negative (Negative); Protein Urine Negative (Negative); Specific Grav Ur 1.017 (1.001-1.035); Squamous Epithelial Cell Urine Rare /hpf (Few); Urobilinogen Urine Negative mg/dL (<2.0); WBC Urine 0-3 /hpf
[2022-04-24 15:18] LABS: SARS-CoV-2 RNA PCR Positive
== END 2022-04-24 15:49 | disposition home or self-care (01) ==
PROVIDERS: Emergency Provider Nurse Practitioner Family; PCP Physician Assistant
DX: U07.1 COVID-19 (principal); E78.00 Pure hypercholesterolemia, unspecified; I10 Essential (primary) hypertension; K21.9 Gastro-esophageal reflux disease without esophagitis; Z87.891 Personal history of nicotine dependence; M47.816 Spondylosis without myelopathy or radiculopathy, lumbar region
CPT/HCPCS: 72100; 81001; 87804; 99283; C9803; U0003; U0005

== ENCOUNTER 2022-08-25 08:01 | Outpatient (CLI) | payer OTHER, SELFPAY ==
--- NOTE | 2022-08-25 11:00 | NEURO_ITS ---
Impression: # Complains of pain in hands and inability to move them. # No Carpal Tunnel Syndrome or ulnar neuropathy. # Normal nerve conduction study. # Normal needle/EMG exam. Motor Nerve Conduction Upper Extremities Median Nerve Conduction Velocity (m/sec) Terminal Latency (msec) Response Voltage(mV) Elbow-Wrist Wrist Elbow Wrist Right 57 3.1 5 7 Left 57 3.1 5 6 Ulnar Nerve Conduction Velocity (m/sec) Terminal Latency (msec) Response Voltage(mV) Above Elbow Below Elbow Wrist Above Elbow Below Elbow Wrist Right 57 2.0 5 9 Left 58 2.5 7 8 F-Wave Latency Median (ms) Ulnar (ms) Right 25.1 24.6 Left 25.8 24.4 Sensory Nerve Conduction Upper Extremities Median Nerve Stimulation Terminal Latency (msec) Wrist/Digit Response Voltage (uV) Wrist Right 2.6/2.6 84/87 Left 2.9/2.9 90/84 Ulnar Nerve Stimulation Terminal Latency (msec) Wrist/Digit Response Voltage (uV) Wrist Right 2.4 29 Left 2.7 47 Radial Nerve Terminal Latency (msec) Response Voltage(mV) Right 1.9 27 Left 1.9 41 Left Right Muscles Examined Fibrillation Fasciculation Scarcity Voltage Duration Left Right Left Right Left Right Left Right Left Right Deltoid Biceps X X Brachioradialis Triceps X X Pronator Teres X X Ext Indicis X X Ext Digitorum X X Abd Poll Brev X X 1st Dorsal Interosseus Paraspinals MTDD
== END 2022-08-25 08:02 | disposition home or self-care (01) ==
PROVIDERS: PCP Physician Assistant; Visit Provider Psychiatry & Neurology Neurology
DX: R20.0 Anesthesia of skin (principal)
CPT/HCPCS: 95886; 95911

== ENCOUNTER 2022-11-26 10:34 | Outpatient (CLI) | payer OTHER, SELFPAY | END 2022-11-26 10:35 | disposition home or self-care (01) | LOC: ANHAUDIO 10:35 | PROVIDERS: PCP Physician Assistant; Visit Provider Physician Assistant | DX: H93.13 Tinnitus, bilateral (principal) | CPT/HCPCS: 92552; 92556; 92567 ==